=== PATIENT | female | born 1945 | race Caucasian/White ===

== ENCOUNTER 2025-09-24 13:21 | Outpatient (AMB) | payer MEDICARE, SELFPAY ==
--- NOTE | 2025-09-24 13:30 | A.OFFVIS_ITS ---
Vital Signs 09/24/25 13:31 Height 5 ft 3 in Weight 132 lb 4.438 oz BMI 23.4 BP 106/60 Blood Pressure Location Rt brachial Position Sitting Pulse 82 Pulse Source Pulse Oximeter Pulse Oximetry (%) 94 Oxygen Delivery Method Room Air Intake Visit Reasons: T2DM 11.9 A1C ok per Cate Intake Note: NEW Patient presents today to establish treatment for Type 2 Diabetes Mellitus: Last Diabetic eye exam was on: About 6 months ago, has a new kathy coming up, at a new Ophthalmology. Last Podiatry exam was on: Patient does not see a Neon Tube Bender Most recent HbA1c: 11.9%, 08/12/2025 done at PCP, Referral. Random Glucose: 168 mg/dL Water Tender Required: No Accompanied by: Significant Other Allergies No Known Allergies Allergy (Verified 09/24/25 13:35) HPI Comments Details: 80 year old female with diabetes presenting for consultation. She is accompanied by her Medical history HTN, HLD, hyperthyroid, benign brain tumor, depression, memory loss PCP Dionisio Paulino Medical Diagnosis:~1974 Current medications Trulicity 3 Lantus 22 units Farxiga 5mg daily Was on metformin in the past and tolerated but read bad press about the medication, they will reconsider She has not had a CGM in the past but should be on one given increasing memory issues Denies macro/microvascular complications She is on ARB and statin therapy UTD eye exam switching to Dr Pa LUQUE CONSTITUTIONAL: Denies weight loss, fever and chills. HEENT: +vision changes, blurry vision RESPIRATORY: Denies SOB and cough. CV: Denies palpitations and CP GI: Denies abdominal pain, nausea, vomiting and diarrhea. : Denies dysuria and urinary frequency. MSK: Denies new myalgia and joint pain. SKIN: Denies rash and pruritus. NEUROLOGICAL: Denies headache PSYCHIATRIC: Denies recent changes in mood. PHYSICAL EXAM: GENERAL: Alert and oriented x 3. NAD EYES: EOMI. Anicteric. HENT: Moist mucous membranes. No scleral icterus. No cervical lymphadenopathy. LUNGS: Clear to auscultation bilaterally. CARDIOVASCULAR: Regular rate and rhythm. No murmur. No JVD. ABDOMEN: Soft, non-tender +bs EXTREMITIES: No edema. Non-tender. SKIN: No rashes or lesions. Warm. NEUROLOGIC: No focal neurological deficits. CN II-XII grossly intact PSYCHIATRIC: Cooperative. Appropriate mood and affect [facility] Medical History HTN (hypertension) Uncomplicated type 2 diabetes mellitus Hypothyroidism Oropharyngeal dysphagia Moderate persistent asthma, uncomplicated Mixed hyperglyceridemia Osteopenia Benign brain tumor Surgical History Hx of cholecystectomy History of partial hysterectomy Hx of colonoscopy Family History Mother Natural Father Medical history unknown Social History Alcohol intake: current Alcohol intake frequency: does not drink Patient Tobacco Use Status: Tobacco use Unknown Physical Exam Vital Signs: Last Vital Signs Pulse 82 09/24/25 13:31 BP 106/60 09/24/25 13:31 Pulse Ox 94 09/24/25 13:31 Oxygen Delivery Method Room Air 09/24/25 13:31 BMI result Body Mass Index 23.4 Assessment & Plan Assessment & Plan (1) Insulin use (long-term) in type 2 diabetes: Code(s): E11.9 - Type 2 diabetes mellitus without complications; Z79.4 - [facility] (current) use of insulin Category: Medical Qualifiers: Diabetes mellitus complication status: without complication Qualified Code(s): E11.9 - Type 2 diabetes mellitus without complications; Z79.4 - [facility] (current) use of insulin (2) Diabetes mellitus with hyperglycemia: Code(s): E11.65 - Type 2 diabetes mellitus with hyperglycemia Category: Medical Qualifiers: Diabetes mellitus type: type 2 Diabetes mellitus fdc insulin use: with flooring installer use Qualified Code(s): E11.65 - Type 2 diabetes mellitus with hyperglycemia; Z79.4 - termite helper (current) use of insulin Plan 80 year old presenting for diabetic consultation She is uncontrolled on current medicaitons Will add 1000mg metformin. could consider increasing that or trulicity at next visit or once she gets a CGM adjusting insulin Advised to treat hypoglycemia by rules of 15s. Orders: Referrals Diabetes Education Referral E11.9 - Type 2 diabetes mellitus without complications Medications: New metformin ER (Glucophage XR) 1,000 mg (2 x 500 mg) PO DAILY 180 tabs 3RF FreeStyle Sharifa 3 Plus Sensor (blood-glucose sensor) every 15 days 6 ea 3RF NS E11.65 - Type 2 diabetes mellitus with hyperglycemia, E11.9 - Type 2 diabetes mellitus without complications, Z79.4 - termite helper (current) use of insulin FreeStyle Sharifa 3 [place] (blood-glucose,nutrition tech,cont) As directed 1 ea 0RF NS E11.65 - Type 2 diabetes mellitus with hyperglycemia, E11.9 - Type 2 diabetes mellitus without complications, Z79.4 - [facility] (current) use of insulin Coding Level of Care Code Est Pt Level 4 (69717) Diagnoses Type 2 diabetes mellitus without complication, with long-term current use of i nsulin E11.9; Z79.4 Diabetes mellitus complication status: without complication Type 2 diabetes mellitus with hyperglycemia, with long-term current use of insulin E11.65; Z79.4 Diabetes mellitus type: type 2 Diabetes mellitus flooring installer insulin use: with flooring installer use
[2025-09-24 13:31] VITALS: BP 106/60; PULSE 82; O2SAT 94; BMI 23.4
[2025-09-24 13:43] LABS: Glucose, Whole Blood 168 mg/dL (60-115)
--- OUTSIDE RECORDS SUMMARY | 2025-09-24 16:11 | XMS_ITS | Clinical Summary ---
Author Organization [facility] Address [address] [facility] [address] [place] [address] Phone Care Team Providers Care Associate Professor Of Chemistry Name Role Phone Mirna Romero Primary Care Provider [phone] Encounters Date Type Department Care Team Description 08/12/2025 Transcribe Orders [facility] [address] [place] [address] [place] [address] Mirna Romero PA Uncontrolled type 2 diabetes mellitus with hypoglycemia, unspecified hypoglycemia coma status (Primary Dx) from Last 3 Months Social History Tobacco Use Types Packs/Day Years Used Date Smoking Tobacco: Never Assessed Comments Unknown Sex and Gender Information Value Date Recorded Sex Assigned at Not on file Legal Sex Female 1:38 PM EDT Gender Identity Not on file Sexual Orientation Not on file Plan of Treatment Not on file Medical Devices Not on file Insurance [facility] MEDICARE REPLACEMENT [facility] MEDICARE [place] [address] [address] [place] [address] [address] [place] [address] MEDICARE REPLACEMENT [facility] MEDICARE REPLACEMENT [facility] MEDIC[facility] REPLACEMENT Member Subscriber Plan / Payer (Ef fective 2024-Present) Name:Jacque Price Relation to Subscriber:Self Name:Jacque Price Payer ID:[id number] (NAIC) Type:Medicare Address: [place] [phone] Care Teams Associate Professor Of Chemistry Relationship Specialty Start Date End Date Mirna Romero PA [address] [place] [id number] PCP - General Physician Trauma Coordinator 08/12/25 Additional Source Comments The information contained in this document represents components of the legal health record. It is not the complete legal health record.[facility]
== END 2025-09-24 13:58 | disposition home or self-care (01) ==
LOC: HO.ENCR 13:22
PROVIDERS: PCP Internal Medicine; Visit Provider Internal Medicine
DX: E11.9 Type 2 diabetes mellitus without complications (principal); Z79.4 Long term (current) use of insulin; E11.65 Type 2 diabetes mellitus with hyperglycemia

== ENCOUNTER → 2025-09-24 13:21 | Outpatient (BNVA) | payer MEDICARE, SELFPAY | PROVIDERS: PCP Internal Medicine; Visit Provider Internal Medicine | DX: E11.65 Type 2 diabetes mellitus with hyperglycemia (principal); Z79.4 Long term (current) use of insulin | CPT/HCPCS: 82947; 99212 ==

== ENCOUNTER 2025-10-13 12:32 | Outpatient (AMB) | payer MEDICARE, SELFPAY ==
--- NOTE | 2025-10-13 13:11 | A.OFFVIS_ITS ---
Intake Intake Visit Reasons: 60 mins Tester Printed [employer] Boards Required: No Accompanied by: Spouse Allergies No Known Allergies Allergy (Verified 09/24/25 13:35) PFSH Medical History HTN (hypertension) Uncomplicated type 2 diabetes mellitus Hypothyroidism Oropharyngeal dysphagia Moderate persistent asthma, uncomplicated Mixed hyperglyceridemia Osteopenia Benign brain tumor Surgical History Hx of cholecystectomy History of partial hysterectomy Hx of colonoscopy Family History Mother Natural Father Medical history unknown Social History Alcohol intake: current Alcohol intake frequency: does not drink Patient Tobacco Use Status: Tobacco use Unknown Assessment & Plan Assessment & Plan (1) Insulin use (long-term) in type 2 diabetes: Code(s): E11.9 - Type 2 diabetes mellitus without complications; Z79.4 - [facility] (current) use of insulin Qualifiers: Diabetes mellitus complication status: without complication Qualified Code(s): E11.9 - Type 2 diabetes mellitus without complications; Z79.4 - [facility] (current) use of insulin Plan: Meter Teaching Patient presents today for a nursing visit for glucometer teaching. Type of Meter:Accu Chek Guide Patient Education: Patient was instructed and provided with demonstration of the following: Setting date/time Turning meter on/off Retrieving blood glucose log Handwashing Test sites Site rotation Use of lancing device Testing blood glucose Removing and disposing needle from lancing device Safe disposal of sharps Target blood sugar Signs/ symptoms/treatment of hypoglycemia/hyperglycemia Frequency of testing Patient verbalized understanding of education provided and was able to demonstrate proper use of lancing device and glucometer. Blood Glucose at time of visit: ??142 mg/dL? All questions were answered and patient was advised to contact the office with any questions or concerns Patient at visit to set up an insert Sharifa 3 with [place] Instructed Pt on what CGM can and can't do CGM Can: Give Pt minute by minute reading of glucose levels Displays glucose trend arrows that represents the direction glucose levels are fluctuating Give insight on decisions about how to dose insulin CGM cannot: Improve glucose control on its own Completely eliminate the need for all finger sticks Make dosing decision for you CGM is the reading of glucose in the interstitial fluid not actual blood glucose, finger sticks are still necessary when Pt's symptom?s do not match sensor reading and if sensors prompts Pt to do a fingerstick Instructed patient sensors water proof you can shower, or swim do not submerge sensor in water for over 30 minutes Is sensor falls off cannot put back in you need to replace sensor, customer service number given to patient for sensor replacement Sensor placed on the back of left arm Patient left visit with sensor in warmup Reviewed how to interpret trend arrows Discussed lag time between finger stick and sensor data.? Instructed patient the importance of having blood glucometer for backup testing if needed Reviewed delay of CGM from fingersticks Reminded Pt that if symptoms do not match sensor still needs to check fingersticks. Portions of this note were created using voice recognition software, please excuse any words or phrases that may have been misinterpreted. Patient Instructions: Patient instruction: CGM provides information on blood glucose control throughout the day, including hyperglycemia and hypoglycemia. ? Continue to monitor blood glucose as instructed. Follow nutrition guidelines provided. Report any discomfort promptly to health care provider. ?Stay well-hydrated. You can bathe ,shower, swim and exercise while wearing the glucose sensor. Do not submerge glucose sensor in water for more than 30 minutes. Coding Level of Care Code Est Pt Level 1 (70888) Diagnoses Type 2 diabetes mellitus without complication, with long-term current use of insulin E11.9; Z79.4 Diabetes mellitus complication status: without complication
--- OUTSIDE RECORDS SUMMARY | 2025-10-13 16:11 | XMS_ITS | Clinical Summary ---
Author Organization [facility] Address [address] [facility] [address] [place] [address] Phone Care Team Providers Care Hoop Cutter Name Role Phone Mirna Romero Primary Care Provider [phone] Encounters Date Type Department Care Team Description 08/12/2025 Transcribe Orders [facility] [address] [place] [address] [place] [address] Mirna Romero PA Uncontrolled type 2 [...] file Medical Devices Not on file Insurance [facility] MEDICARE REPLACEMENT [facility] MEDICARE REPLACEMENT [place] [address] [place] [address] MEDICARE REPLACEMENT [facility] MEDICARE REPLACEMENT [facility] MEDICARE REPLACEMENT Member Subscriber Plan / Payer (Ef fective 2024-Present) Name:Jacque Price Relation to Subscriber:Self Name:Jacque Price Payer ID:[id number] (NAIC) Type:Medicare Address: [place] [phone] Care Teams Hoop Cutter Relationship Specialty Start Date End Date Mirna Romero PA [address] [place] [address] PCP - General Physician Batter Mixer Helper 08/12/25 Additional Source Comments The information contained in this document represents components of the legal health record. It is not the complete legal health record.[facility]
--- OUTSIDE RECORDS SUMMARY | 2025-10-13 16:11 | XMS_ITS ---
Author Organization [facility] Care Team Providers Care Signal Helper Name Role Phone Hyun Aly Unavailable Unavailable Edmunod Borges Unavailable Unavailable Heather Alcala Unavailable Unavailable Allergies and adverse reactions Code CodeSystem Substance Reaction Severity StartDate Concern Status 91112 RXNORM Flonase Unknown 01/26/2024 active 48245 RXNORM Levaquin Unknown 01/26/2024 active Care Team Name Role Address Phone Organization Dates Edmundo Borges PCP [address] [place], [address], [place] (Office): [facility] 01/26/2024 - 02/08/2024 Hyun Aly [address] [place], [address], [place] (Office): [facility] 01/26/2024 - 02/08/2024 Heather Alcala [address], [place], [address], [place] (Office): [facility] 01/26/2024 - 02/08/2024 Goals Section Goals Description Status Target Date I will attend/participate in activities of choice 1-2 times per week by next review date. If I choose not to partake in group activities I will watch TV in my room and or do word search puzzles and or color. Active 02/09/2024 I will be free of falls with injury through the review date. Active 02/09/2024 I will consume 75% of at least 3 meals every day x 90 days Active 02/09/2024 I will demonstrate the appro priate use of adaptive device(s) to increase ability in (Specify Bed Mobility, Transfers, Eating, Dressing, Toilet Use and Personal Hygiene) through the review date. Device(s): Active 02/09/2024 I will have intact skin, anmol e of redness, blisters or discoloration by/through review date. Active 02/09/2024 I will have no complications related to diabetes through the review date. Active 02/09/2024 I will not have discomfort r elated to side effects of analgesia through the review date. Active 02/09/2024 I will pass soft, formed sto ol every one to three days through the review date. Active 02/09/2024 I will remain free of compli cation related to hypertension through review date. Active 02/09/2024 Immunizations Immunization Status Vaccine Details Vaccine Code CodeSystem Jason e Notes COVID-19 PFIZER #1 completed SARS-COV-2 (COVID-19) vaccine, mRNA, spike protein, LNP, preservative free, 30 mcg/0.3mL dose 208 CVX created date: 02/02/2024 administered date: 01/26/2021 COVID-19 [facility] #2 completed SARS-COV-2 (COVID-19) vaccine, mRNA, spike protein, LNP, preservative free, 30 mcg/0.3mL dose 208 CVX created date: 02/02/2024 administered date: 02/16/2021 Zostavax completed zoster vaccine, live 121 CVX created date: 02/02/2024 administered date: 02/08/2022 Zostavax completed zoster vaccine, live 121 CVX created date: 02/02/2024 administered date: 12/10/2021 COVID-19 [facility] #3 completed SARS-COV-2 (COVID-19) vaccine, mRNA, spike protein, LNP, preservative free, 30 mcg/0.3mL dose 208 CVX created date: 02/02/2024 administered date: 11/12/2021 COVID-19 PFIZER #4 completed SARS-COV-2 (COVID-19) vaccine, mRNA, spike protein, LNP, preservative free, 30 mcg/0.3mL dose 208 CVX created date: 02/02/2024 administered date: 03/24/2022 COVID-19 BIVALENT Booster - Pfizer completed SARS-COV-2 (COVID-19) vaccine, mRNA, spike protein, LNP, bivalent, preservative free, 30 mcg/0.3 mL dose, merlene-sucrose formulation 300 CVX created date: 02/02/2024 administered date: 08/10/2022 RSV completed Respiratory syncytial virus (RSV), vaccine, recombinant, protein subunit RSV prefusion F, adjuvant reconstituted, 0.5 mL, preservative free 303 CVX created date: 02/02/2024 administered date: 11/03/2023 COVID-19 MODERNA completed SARS-COV-2 (COVID-19) vaccine, mRNA, spike protein, LNP, preservative free, 50 mcg/0.5 mL dose 312 CVX created date: 02/02/2024 administered date: 08/22/2023 Influenza, seasonal, injectable completed Influenza, split virus, trivalent, injectable, contains preservative 141 CVX created date: 02/02/2024 administered date: 08/30/2023 Mental Status Section Date Assessment Total Score Description 02/08/2024 BIMS 15 cognitively int act CAM 0 No delirium ind icated PHQ-9 00 01/29/2024 BIMS 15 cognitively int act CAM 0 No delirium ind icated PHQ-9 00 Insurance Providers Coverage Status Coverage Type Relationship to Subscriber Member Identifier Subscriber Identifier Group Identifier Payer Identifier and Other information 2024 Code: Code System OID:[id number] .[id number]. 5 Code System Name: Source of Payment Typology (PHDSC) Display: Managed Care (Private) Translation: Code: Code System: OID:[id number] .[id number]. 1336 Code System Name: Insurance Type Code ([id number]) Display Name: Health Maintenance Organization (HMO) Plan Code: SELF Code System Name: HL7 RoleCode Code System OID:[id number] .[id number] Display Name: Self [id number] Root: [id number] Payer Name: [facility] Address: [facility] [address] City: [place] State: [place] Country: [facility] Telecom: [phone] Code: 81 Code System OID:[id number] .[id number]. 5 Code System Name: Source of Payment Typology (PHDSC) Display: Self Pay Translation: Code: 09 Code System: OID:[id number] .[id number]. 1336 Code System Name: Insurance Type Code ([id number]) Display Name: Self-pay Plan of Treatment Section Interventions Intervention Code Code System Display Name Proposed D ate Problems Problem # Description Date of onset Resolved Date Code CodeSystem Concern Status 1 AFTERCARE FOLLOWING JOINT REPLACEMENT SURGERY 01/26/[address] active 2 ANXIETY DISORDER, UNSPECIFIED 01/26/[address] active 3 ATHEROSCLEROTIC HEART DISEASE OF [place] CORONARY ARTERY WITHOUT ANGINA PECTORIS 01/26/[id number] active 4 CHRONIC KIDNEY DISEASE, STAGE 3 UNSPECIFIED 01/26/[address] active 5 CHRONIC OBSTRUCTIVE PULMONARY DISEASE, UNSPECIFIED 01/26/[address] active 6 ESSENTIAL (PRIMARY) HYPERTENSION 01/26/[address] active 7 FRACTURE OF UNSPECIFIED PART OF NECK OF LEFT FEMUR, SUBSEQUENT ENCOUNTER FOR CLOSED FRACTURE WITH ROUTINE HEALING 01/26/[address] active 8 HYPERLIPIDEMIA, UNSPECIFIED 01/26/[address] active 9 HYPOTHYROIDISM, UNSPECIFIED 01/26/[address] active 10 MAJOR DEPRESSIVE DISORDER, RECURRENT, UNSPECIFIED 01/26/[address] active 11 PERSONAL HISTORY OF (HEALED) TRAUMATIC FRACTURE 01/26/[address] active 12 PNEUMONIA, UNSPECIFIED ORGANISM 01/26/[address] active 13 REPEATED FALLS 01/26/[address] active 14 SEPSIS, UNSPECIFIED ORGANISM 01/26/[address] active 15 TYPE 2 DIABETES MELLITUS WITH UNSPECIFIED COMPLICATIONS 01/26/[address] active 16 URINARY TRACT INFECTION, SITE NOT SPECIFIED 01/26/[address] active Reason for Referral No Reasons for Referral Entered Social History Social History Observation Description Start Date End Date Code Code System Current Smoking Status Tobacco smoking consumption unknown 927972881 SNOMED CT Sex Assigned At Female 1945 63048-2 [facility] Gender Identity Female [id number] [address] Sexual Orientation Heterosexual (finding) 63166194 SNOMED CT Vital Signs Code Code System Vitals Name Values and Units Timing Information 9279-1 [facility] Respiratory Rate Value=17.0 Units=/m in 02/08/2024 8462-4 [facility] Blood Pressure-Diastolic Value=68 Un its=mmHg 02/08/2024 8480-6 [facility] Blood Pressure-Systolic Dalsb=797 Un its=mmHg 02/08/2024 8310-5 [facility] Body Temperature Value=97.2 Units= F 02/08/2024 8867-4 [facility] Heart rate Value=78.0 Units=/min 80012-5 [facility] O2 % BldC Oximetry Value=96.0 Units= % 02/08/2024 15897-8 [facility] Pain Level Value=3.0 02/08/2024 54098-8 [facility] Weight Vvnba=462.0 Units=Lbs 8302-2 [facility] Height Value=62.5 Units=Inches 01/30/2024
--- OUTSIDE RECORDS SUMMARY | 2025-10-13 16:13 | XMS_ITS | Clinical Summary ---
Author Organization 175 [facility] Address 175 [place] [address] Phone Care Team Providers Care Plater Barrel Name Role Phone Physician, Pcp Unknown Primary Care Provider Elisa vailable Allergies Active Allergy Reactions Criticality Noted Date Comments Fluticasone Rash 01/26/2024 Levofloxacin 11/27/2024 Medications levothyroxine (SYNTHROID, LEVOTHROID) 75 mcg tablet Take 25 mcg by mouth 1 (one) time each day before breakfast. Active pravastatin (PRAVACHOL) 40 mg tablet Take 1 tablet (40 mg total) by mouth at bedtime. Active amLODIPine (NORVASC) 5 mg tablet Take 1 tablet (5 mg total) by mouth 2 (two) times a day. 4 Active blood sugar diagnostic (OneTouch Verio test strips) test strip 4 Active Farxiga 5 mg tablet Take 1 tablet (5 mg total) by mouth 1 (one) time each day at the same time. 5 Active Trulicity 1.5 mg/0.5 mL pen injector injection INJECT 1.5MG SUBCUTANEOUSLY ONCE A WEEK 4 Active Semglee,insuli n glarg-yfgn,Pen 100 unit/mL (3 mL) injection INJECT 20 UNITS SUBCUTANEOUSLY EVERY 24 HOURSDAYS SUPPLY IS 75 4 Active BD Lizzie 2nd Gen Pen Needle 32 gauge x needle USE 1 DAILY TO INJECT LANTUS DAILY 4 Active sertraline (ZOLOFT) 50 mg tablet Take 1 tablet (50 mg total) by mouth 1 (one) time each day. 4 Active Januvia 50 mg tablet Take 1 tablet (50 mg total) by mouth 1 (one) time each day. 4 Active valsartan (DIOVAN) 80 mg tablet Take 1 tablet (80 mg total) by mouth 1 (one) time each day. 5 Active traMADoL (ULTRAM) 50 mg tablet TAKE 1 TABLET BY MOUTH EVERY 4-6 HOURS -DO NOT EXCEED 8 TABS/DAY 4 Active Active Problems Problem Noted Date Diagnosed Date Moderate persistent asthma without complication 11/22/2024 Oropharyngeal dysphagia 11/22/2024 Mixed hyperlipidemia 11/22/2024 Hypothyroidism 11/22/2024 Type 2 diabetes mellitus ([facility] V24, [facility] V 28) 11/22/2024 Essential hypertension 11/22/2024 Encounters Date Type Department Care Team Description 09/16/2025 1:00 PM EST Office Visit Orthopedic Surgery [address] [address] Sanjiv Contreras, DPM Acquired hammer toe of right foot (Primary Dx); Hammer toe of left foot; Dermatophytosis of nail; Pain in toe of right foot; Diabetic mononeuropathy simplex ([facility] V24, [facility] V28); Type II diabetes mellitus with peripheral circulatory disorder ([facility] V24, [facility] V28); Pain in toe of left foot from Last 3 Months Immunizations Immunization Administration Dates Next Due Influenza Quadravalent, 0.5m l (Fluad) 65yo and older 08/30/2023,08/25/2022 Influenza trivalent, 0.5mL ( Fluzone High-dose) 65yo and older 09/04/2024,07/30/2021,08/29/2017 RSV, bivalent, protein subun it RSVpreF, 0.5mL, Preservative Free (ABRYSVO) 50yo and older or 32 through 36 wks of 11/03/2023 Td Tetanus diptheria (Tdvax) 7yo and older 11/22 Zoster recombinant (Shingrix ) 19yo and older 02/08/2022,12/10/2021 Social History Tobacco Use Types Packs/Day Years Used Date Smoking Tobacco: Never Assessed Comments Unknown Sex and Gender Information Value Date Recorded Sex Assigned at Not on file Legal Sex Female 10:05 PM EST Gender Identity Not on file Sexual Orientation Not on file Last Filed Vital Signs Vital Sign Reading Time Taken Comments Blood Pressure - - Pulse - - Temperature - - Respiratory Rate - - Oxygen Saturation - - Inhaled Oxygen Concentration - - Weight 58.1 kg (128 lb) 02/05/2025 1:09 PM EDT Height 160 cm (5' 2.99 ) 02/05/2025 1:09 PM EDT Body Mass Index 22.68 02/05/2025 1:09 PM EDT Plan of Treatment Upcoming Encounters Date Type Department Care Team (Late st Contact Info) Description 01/14/2026 1:30 PM EST Office Visit Orthopedic Surgery - [place] [address] [address] Sanjiv Contreras, DPCarmen [address] [address] Health Maintenance Due Date Last Done Comments Diabetes: Annual GFR (Glomerular Filtration Rate) 1947 Diabetes: Annual Foot Exam 1957 Diabetes: Annual Retina Eye Exam 1955 Cholesterol Screening (Lipid Panel) 10/15/2022 Falls Risk Assessment 10/15/2022 Hepatitis C Screening 10/15/2022 Medicare Annual Wellness Visit 10/15/2022 Osteoporosis Screening (Bone Density Screening) 10/15/2022 Social Influencers of Health Screening 10/15/2022 Pneumococcal Vaccine: 50+ Years (3 of 3 - PCV20 or PCV21) 06/20/2023 06/20/2018, 09/16/1999 Depression Screening 11/13/2024 Diabetes: Annual Urine Albumin-Creatinine Ratio (uACR) 11/22/2024 Diabetes: Blood Sugar Control Test (HGBA1C) 11/22/2024 Hypertension/CHF/CAD Annual BMP Blood Test 11/22/2024 COVID-19 Vaccine ( season) 2026 08/15/2025, 08/22/2023, 08/10/2022, Additional history exists DTaP,Tdap,and Td Vaccines (4 - Td or Tdap) 11/22/2031 11/22/2021, 12/07/2011, 03/11/2001 Zoster Vaccines Completed 02/08/2022, 12/10/2021 RSV Immunization Adult Patients Completed 11/03/2023 Influenza Vaccine Completed 08/15/2025, , 08/30/2023, Additional history exists HIB Vaccines Aged Out No longer eligi ble based on patient's age to complete this topic HPV Vaccines Aged Out No longer eligi ble based on patient's age to complete this topic Hepatitis A Vaccines Aged Out No long er eligible based on patient's age to complete this topic Hepatitis B Vaccines Aged Out No long er eligible based on patient's age to complete this topic IPV Vaccines Aged Out No longer eligi ble based on patient's age to complete this topic MMR Vaccines Aged Out No longer eligi ble based on patient's age to complete this topic Meningococcal ACWY Vaccine Aged Out N o longer eligible based on patient's age to complete this topic Meningococcal B Vaccine Aged Out No l onger eligible based on patient's age to complete this topic RSV Immunization Patients Under 20 months Aged Out No longer eligible based on patient's age to complete this topic Varicella Vaccines Aged Out No longer eligible based on patient's age to complete this topic Insurance [facility] [place] [address] [employer] MEDICARE Care Teams Plater Barrel Relationship Specialty Start Date End Date Physician, Pcp Unknown PCP - General 11/14/24
== END 2025-10-13 13:13 | disposition home or self-care (01) ==
LOC: HO.ENCR 12:32
PROVIDERS: PCP Internal Medicine; Visit Provider Registered Nurse Diabetes Educator
DX: E11.9 Type 2 diabetes mellitus without complications (principal); Z79.4 Long term (current) use of insulin

== ENCOUNTER → 2025-10-13 12:32 | Outpatient (BNVA) | payer MEDICARE, SELFPAY | PROVIDERS: PCP Internal Medicine; Visit Provider Registered Nurse Diabetes Educator | DX: E11.9 Type 2 diabetes mellitus without complications (principal); Z79.4 Long term (current) use of insulin | CPT/HCPCS: 99211 ==

== ENCOUNTER 2025-10-28 12:15 | Outpatient (AMB) | payer MEDICARE, SELFPAY ==
--- NOTE | 2025-10-28 12:46 | MHC.AMDMED ---
Intake Intake Visit Reasons: 60 mins Equipment Operation Instructor Required: No Accompanied by: Spouse Allergies No Known Allergies Allergy (Verified 09/24/25 13:35) PFSH Medical History HTN (hypertension) Uncomplicated type 2 diabetes mellitus Hypothyroidism Oropharyngeal dysphagia Moderate persistent asthma, uncomplicated Mixed hyperglyceridemia Osteopenia Benign brain tumor Surgical History Hx of cholecystectomy History of partial hysterectomy Hx of colonoscopy Family History Mother Natural Father Medical history unknown Social History Alcohol intake: current Alcohol intake frequency: does not drink Patient Tobacco Use Status: Tobacco use Unknown Assessment & Plan Assessment & Plan (1) Diabetes mellitus with hyperglycemia: Code(s): E11.65 - Type 2 diabetes mellitus with hyperglycemia Qualifiers: Diabetes mellitus type: type 2 Diabetes mellitus correction insulin use: with correction use Qualified Code(s): E11.65 - Type 2 diabetes mellitus with hyperglycemia; Z79.4 - longterm (current) use of insulin Plan: Learning objectives: The patient was provided with verbal and written education on the following topics as outlined below. The patient met all learning objectives and was able to verbalize understanding and provide teach back of education topics discussed . The patient was provided with the opportunity to ask questions and all questions were answered. Patient Assessment Assess patient education level/literacy/barriers HbA1c: 11.9%, 08/12/2025 Patient on Lantus 22 units daily Metformin 1000 mg b.i.d. Trulicity 3 mg weekly Farxiga 5 mg daily is on patient's med list but she denies she is taking Patient questions/concerns, patient is experiencing high percentage of hypoglycemia overnight Recommended to patient she reduce Lantus from 22 units to 16 units daily follow-up with Dr. Murrell on 11/12/2025 What is Diabetes? Pathophysiology How the body produces and uses insulin Identify type of DM Risk factors Signs of Diabetes Brief overview of Diabetes Management Monitoring blood sugar Following a meal plan Regular exercise Maintaining a healthy weight Taking medication as needed Members of the care team (PCP, RN, MA, RD, CDE, lens coating technician) Blood glucose monitoring When/how often to test Target blood sugar ranges Introduction to Nutrition Importance of healthy diet in managing DM Diet is personalized to individual preference Review patient?s regular diet/food preferences Who prepares meals/does food shopping/ Dining out?/ Barriers? How diet effects glucose Eating 3 balanced meals a day with small, healthy snacks between meals Review food groups Carbohydrates: What is a carbohydrate/Which food/food groups are considered carbohydrates Effect of carbohydrates on blood glucose Portion sizes Reading food labels Basic carb counting (if applicable per nursing assessment) Plate method Meal planning Recommendations: Follow plate method, consistent carbs and read nutritional labels. Smart Goal:Pt will use rule of 15s to treat low blood glucose Educational Materials: The patient was provided with the following written educational materials: Planning Healthy Meals Handout Patient Response to instructions: Comprehension of Instructions: Fair Readiness to make changes: Contemplation How confident they feel about making changes: Positive Portions of this note were created using voice recognition software, please excuse any words or phrases that may have been misinterpreted. Patient Instructions: Reduce Lantus from 22 units to 16 units Follow up with diabetes education nurse in 2 months Include regular daily activity. ADA recommends 30 minutes of exercise 5 days a week. Weight loss talk to PCP or Canal Driver before starting new plan. Test blood sugar as directed; Fasting and 2hpp largest meal. Watch trends in results. Utilize results and to assess how food, physical activity and medications affect blood sugar results. Bring glucometer or CGM to next visit. Be knowledgeable about diabetes medication, its action, side effects, efficacy, toxicity, prescribed dosage, appropriate timing and frequency of administration, effect of missed and delayed doses and instructions for storage, travel and safety. Problem solving techniques to monitor hypo/hyperglycemia episodes and treatments. Reduce risk reduction behaviors, smoking cessation, regular eye, foot and dental examinations. Coding Level of Care Code Est Pt Level 1 (53015) Diagnoses Type 2 diabetes mellitus with hyperglycemia, with long-term current use of insulin E11.65; Z79.4 Diabetes mellitus type: type 2 Diabetes mellitus longwall headgate operator insulin use: with longwall headgate operator use
--- OUTSIDE RECORDS SUMMARY | 2025-10-28 16:07 | XMS_ITS | Clinical Summary ---
Author Organization 175 [facility] Address [address] [place] [address] Phone Care Team Providers Care Retail Furniture Sales Name Role Phone Physician, Pcp Unknown Primary [...] 11/22/2024 Hypothyroidism 11/22/2024 Type 2 diabetes mellitus 11/22/2024 Essential hypertension 11/22/2024 Encounters Date Type Department Care Team Description 09/16/2025 1:00 PM EST Office Visit Orthopedic Surgery - [address] [address] Sanjiv Contreras, DPCarmen Acquired hammer toe of right foot (Primary Dx); Hammer toe of left foot; Dermatophytosis of nail; Pain in toe of right foot; Diabetic mononeuropathy simplex (CMS/HCC V24, CMS/HCC V28); Type II diabetes mellitus with peripheral circulatory disorder (CMS/HCC V24, CMS/HCC V28); Pain in toe of left foot [...] PM EST Office Visit Orthopedic Surgery - [place] [address] [address] Sanjiv Contreras, DPCarmen [address] [address] Health Maintenance Due Date Last [...] patient's age to complete this topic Insurance [facility] [place] [address] [employer] MEDICARE Care Teams Retail Furniture Sales Relationship Specialty Start Date End Date Physician, Pcp Unknown PCP - General 11/14/24
--- OUTSIDE RECORDS SUMMARY | 2025-10-28 16:07 | XMS_ITS | Clinical Summary ---
Author Organization [facility] Address [address] [facility] [address] [place] [phone] Phone Care Team Providers Care Golf Course Superintendent Name Role Phone Mirna Romero Primary Care Provider [phone] Encounters Date Type Department Care Team Description 08/12/2025 Transcribe Orders [facility] [address] [place] [address] [place] [address] Mirna Romero PA Uncontrolled type 2 [...] file Medical Devices Not on file Insurance [facility] [place] [address] [facility] MEDICARE [address] [address] [address] [place] [address] [place] [address] MEDICARE REPLACEMENT [facility] MEDICARE REPLACEMENT [facility] MEDICARE REPLACEMENT Member Subscriber Plan / Payer (Ef fective 2024-Present) Name:Jacque Price Relation to Subscriber:Self Name:Jacque Price Payer ID:[id number] (NAIC) Type:Medicare Address: [place] [id number] Care Teams Golf Course Superintendent Relationship Specialty Start Date End Date Mirna Romero PA [address] [place] [id number] PCP - General Physician Journalism Internship 08/12/25 Additional Source Comments The information contained in this document represents components of the legal health record. It is not the complete legal health record.[facility]
== END 2025-10-28 12:57 | disposition home or self-care (01) ==
LOC: HO.ENCR 12:16
PROVIDERS: PCP Internal Medicine; Visit Provider Registered Nurse Diabetes Educator
DX: E11.65 Type 2 diabetes mellitus with hyperglycemia (principal); Z79.4 Long term (current) use of insulin

== ENCOUNTER → 2025-10-28 12:15 | Outpatient (BNVA) | payer MEDICARE, SELFPAY | PROVIDERS: PCP Internal Medicine; Visit Provider Registered Nurse Diabetes Educator | DX: E11.65 Type 2 diabetes mellitus with hyperglycemia (principal); Z79.4 Long term (current) use of insulin | CPT/HCPCS: 99211 ==

== ENCOUNTER 2025-11-12 12:41 | Outpatient (AMB) | payer MEDICARE, SELFPAY ==
--- NOTE | 2025-11-12 12:55 | A.OFFVIS_ITS ---
Vital Signs 11/12/25 12:56 Height 5 ft 3 in Weight 130 lb 1.164 oz BMI 23.0 BP 104/68 Blood Pressure Location Rt brachial Position Sitting Pulse 75 Pulse Source Pulse Oximeter Pulse Oximetry (%) 93 Oxygen Delivery Method Room Air Intake Visit Reasons: DM follow up Intake Note: Patient presents today for a follow-up on Type 2 Diabetes Mellitus: Last Diabetic eye exam was on: Patient has an appt in 2 months Last Podiatry exam was on: Patient does not see a Head Kiln Operator Most recent HbA1c: 8.3%, 11/12/2025 Random Glucose: 177 mg/dL Center Medical Specialist Required: No Accompanied by: Significant Other Allergies No Known Allergies Allergy (Verified 11/12/25 12:55) HPI Comments Details: 80 year old female with diabetes presenting for consultation. She is accompanied by her Medical history HTN, HLD, hyperthyroid, benign brain tumor, depression, memory loss PCP Nichole [facility] Medical Diagnosis:~1976 Current medications Trulicity 3 Lantus 14 units-will decrease to 8 today Farxiga 5mg daily Metformin 1000mg once daily A1C today is 8.3%. CGM: 98% use GMI 6.8% with 23% high, 69% tgt and 8% lows-all overnight Denies macro/microvascular complications She is on ARB and statin therapy UTD eye exam switching to Dr Pa LUQUE CONSTITUTIONAL: Denies weight loss, fever and chills. HEENT: +vision changes, blurry vision RESPIRATORY: Denies SOB and cough. CV: Denies palpitations and CP GI: Denies abdominal pain, nausea, vomiting and diarrhea. : Denies dysuria and urinary frequency. MSK: Denies new myalgia and joint pain. SKIN: Denies rash and pruritus. NEUROLOGICAL: Denies headache PSYCHIATRIC: Denies recent changes in mood. PHYSICAL EXAM: GENERAL: Alert and oriented x 3. NAD EYES: EOMI. Anicteric. HENT: Moist mucous membranes. No scleral icterus. No cervical lymphadenopathy. LUNGS: Clear to auscultation bilaterally. CARDIOVASCULAR: Regular rate and rhythm. No murmur. No JVD. ABDOMEN: Soft, non-tender +bs EXTREMITIES: No edema. Non-tender. SKIN: No rashes or lesions. Warm. NEUROLOGIC: No focal neurological deficits. CN II-XII grossly intact PSYCHIATRIC: Cooperative. Appropriate mood and affect [facility] Medical History HTN (hypertension) Uncomplicated type 2 diabetes mellitus Hypothyroidism Oropharyngeal dysphagia Moderate persistent asthma, uncomplicated Mixed hyperglyceridemia Osteopenia Benign brain tumor Surgical History Hx of cholecystectomy History of partial hysterectomy Hx of colonoscopy Family History Mother Natural Father Medical history unknown Social History Alcohol intake: current Alcohol intake frequency: does not drink Patient Tobacco Use Status: Tobacco use Unknown Physical Exam Vital Signs: Last Vital Signs Pulse 75 11/12/25 12:56 BP 104/68 11/12/25 12:56 Pulse Ox 93 11/12/25 12:56 Oxygen Delivery Method Room Air 11/12/25 12:56 BMI result Body Mass Index 23.0 Results AMB Hemoglobin A1c AMB Hemoglobin A1c 8.3 % Last Edit by DENISE Grissom on 11/12/25 13:10 Results Reviewed Results Reviewed: Laboratory Last Values Glucose (Clinic) 177 mg/dL (60-115) H 11/12/25 13:01 Assessment & Plan Assessment & Plan (1) Insulin use (long-term) in type 2 diabetes: Code(s): E11.9 - Type 2 diabetes mellitus without complications; Z79.4 - [facility] (current) use of insulin Category: Medical Qualifiers: Diabetes mellitus complication status: without complication Qualified Code(s): E11.9 - Type 2 diabetes mellitus without complications; Z79.4 - [facility] (current) use of insulin Plan 80 year old with diabetes recently controlled, A1C has not caught up, unfortunately frequent hypoglycemia. Decrease lantus to 8 units daily. She will call if still getting hypoglycemic Treat hypoglycemia by rules of 15s. continue CGM use Return in 3 months or sooner as needed Orders: Orders AMB Hemoglobin A1c Today E11.65 - Type 2 diabetes mellitus with hyperglycemia, Z79.4 - long term care phlebotomist (current) use of insulin Medications: Changed From insulin glargine (Lantus Solostar U-100 Insulin) 14 units subcut DAILY To insulin glargine (Lantus Solostar U-100 Insulin) 8 units (0.08 mL) subcut PAYAL LY 15 mL 3RF Coding Level of Care Code Est Pt Level 4 (27976) Diagnoses Type 2 diabetes mellitus without complication, with long-term current use of insulin E11.9; Z79.4 Diabetes mellitus complication status: without complication
[2025-11-12 12:56] VITALS: BP 104/68; PULSE 75; O2SAT 93; BMI 23.0
[2025-11-12 13:04] LABS: Glucose, Whole Blood 177 mg/dL (60-115)
--- OUTSIDE RECORDS SUMMARY | 2025-11-12 14:16 | XMS_ITS | Clinical Summary ---
Author Organization 175 [facility] Address [address] [place] [address] Phone Care Team Providers Care Beveling Machine Operator Name Role Phone Physician, Pcp Unknown Primary [...] PM EST Office Visit Orthopedic Surgery - [address] [address] Sanjiv Contreras, DPCarmen Acquired hammer [...] PM EST Office Visit Orthopedic Surgery - [place] [address] [address] Sanjiv Contreras, DPCarmen [address] [address] Health Maintenance Due Date Last [...] patient's age to complete this topic Insurance [facility] [place] [address] [employer] MEDICARE Care Teams Beveling Machine Operator Relationship Specialty Start Date End Date Physician, Pcp Unknown PCP - General 11/14/24
--- OUTSIDE RECORDS SUMMARY | 2025-11-12 14:16 | XMS_ITS | Clinical Summary ---
Author Organization [facility] Address [address] [facility] [address] [place] [address] Phone Care Team Providers Care Dry Chain Worker Name Role Phone Mirna Romero Primary Care Provider Encounters Date Type Department Care Team Description 08/12/2025 Transcribe Orders [facility] [address] [place] [address] Mirna Romero PA Uncontrolled type 2 [...] file Medical Devices Not on file Insurance [facility] MEDICARE REPLACEMENT [facility] MEDICARE [place] [address] [address] [place] [address] [place] [address] MEDICARE REPLACEMENT [facility] MEDICARE REPLACEMENT [facility] MEDICARE REPLACEMENT Member Subscriber Plan / Payer (Ef fective 2024-Present) Name:Jacque Price Relation to Subscriber:Self Name:Jacque Price Payer ID:[id number] (NAIC) Type:Medicare Address: [place] [id number] Care Teams Dry Chain Worker Relationship Specialty Start Date End Date Mirna Romero PA [address] [place] [id number] PCP - General Physician Rug Designer 08/12/25 Additional Source Comments The information contained in this document represents components of the legal health record. It is not the complete legal health record.[facility]
== END 2025-11-12 13:24 | disposition home or self-care (01) ==
LOC: HO.ENCR 12:42
PROVIDERS: PCP Internal Medicine; Visit Provider Internal Medicine
DX: E11.65 Type 2 diabetes mellitus with hyperglycemia (principal); Z79.4 Long term (current) use of insulin; E11.9 Type 2 diabetes mellitus without complications

== ENCOUNTER → 2025-11-12 12:41 | Outpatient (BNVA) | payer MEDICARE, SELFPAY | PROVIDERS: PCP Internal Medicine; Visit Provider Internal Medicine | DX: E11.9 Type 2 diabetes mellitus without complications (principal); Z79.4 Long term (current) use of insulin; Z79.84 Long term (current) use of oral hypoglycemic drugs; Z79.85 Long-term (current) use of injectable non-insulin antidiabetic drugs | CPT/HCPCS: 82947; 83036; 99212 ==